=== PATIENT | female | born 1950 | race Caucasian/White ===

== ENCOUNTER 2017-08-17 19:19 | Emergency (ER) | payer MEDICARE, OTHER ==
[~2017-08-17] VITALS: Ht 160 cm; Wt 74.5 kg
[2017-08-17] MEDS ORDERED: HYDR25TA PO (19:36)
[2017-08-17] MEDS ORDERED: AMLO-511 PO (19:36)
[2017-08-17] MEDS ORDERED: GABA-318 PO (19:36)
[2017-08-17] MEDS ORDERED: SITA50 PO (19:36)
[2017-08-17] MEDS ORDERED: CARV3 PO (19:36)
[2017-08-17] MEDS ORDERED: METF500T4 PO (19:36)
[2017-08-17] MEDS ORDERED: EZET10 PO (19:36)
[2017-08-17] MEDS ORDERED: DEXL30CA3 PO (19:36)
[2017-08-17] MEDS ORDERED: CLOP75 PO (19:36)
[2017-08-17] MEDS ORDERED: DICL50TA9 PO (19:36)
[2017-08-17] MEDS ORDERED: NITR.4 SL (19:36)
[2017-08-17] MEDS ORDERED: MELO-107 PO (19:36)
[2017-08-17] MEDS ORDERED: ACET-2247 PO (19:36)
[2017-08-17] MEDS ORDERED: ASPI-556 PO (19:36)
[2017-08-17] MEDS ORDERED: LISI-662 PO (19:36)
[2017-08-17 19:37] LABS: GLUCOSE,POINT OF CARE 231 MG/DL (70-110)
[2017-08-17] MEDS ORDERED: ACETAMINOPHEN 500 MG TABLET PO ONE (20:30)
[2017-08-17 20:55] VITALS: BP 139/71
== END 2017-08-17 21:09 | disposition home or self-care (01) ==
LOC: EMS 19:21
DX: M13.812 Other specified arthritis, left shoulder (principal); I10 Essential (primary) hypertension; I25.10 Atherosclerotic heart disease of native coronary artery without angina pectoris; E11.9 Type 2 diabetes mellitus without complications; E78.00 Pure hypercholesterolemia, unspecified; I20.9 Angina pectoris, unspecified; Z88.5 Allergy status to narcotic agent; Z79.82 Long term (current) use of aspirin
CPT/HCPCS: 82962; 93005; 99283